=== PATIENT | female | born 1950 | race Caucasian/White ===

== ENCOUNTER 2020-10-07 20:05 | Observation (INO) ==
[2020-10-07] MEDS ORDERED: DILTIAZEM 50 MG/10 ML VIAL IV STA ×2 (20:27→21:41)
[2020-10-07] MEDS ORDERED: ASPIRIN CHEW 81 MG TABLET PO STA (20:27)
[2020-10-07] MEDS ORDERED: ASPIRIN 325 MG TABLET ONE (20:29)
[2020-10-07 20:34] LABS: Basophils # 0.1 10*3/uL (0.0-0.2); Basophils % 0.4 % (0.0-0.8); Eosinophils # 0.1 10*3/uL (0.0-0.87); Eosinophils % 0.4 % (0.00-10.9); Hematocrit 34.6 VOL% (35.7-47.0); Hemoglobin 10.6 GM/DL (12.0-16.0); Immature Granulocytes % 0.5 %; Immature Granulocytes Absolute 0.06 #; Lymphocytes # 2.1 10*3/uL (1.4-4.0); Lymphocytes % 16.8 % (21.3-54.2); Mean Corpuscular HGB Conc 30.6 GM/DL (32-36); Mean Corpuscular Volume 76.7 FL (87-102); Mean Platelet Volume 9.7 FL (9.6-12.0); Monocytes % 9.5 % (1.7-12.7); Neutrophils % 72.4 % (38.7-73.9); Platelet Count 590 T/CUMM (130-400); Red Blood Count 4.51 MC/CUMM (3.8-5.5); White Blood Count 12.7 T/CUMM (4-12)
[2020-10-07] MEDS ORDERED: SODIUM CHLORIDE 0.9% 500 ML IV STA (20:45)
[2020-10-07] MEDS: DILTIAZEM INJ 100 MG in SODIUM CHLORIDE 0.9% 100 ML IV SCH (20:52)
[2020-10-07 21:06] LABS: Alanine Aminotransferase 22 U/L (13-56); Albumin 3.7 G/DL (3.4-5.0); Alkaline Phosphatase 68 U/L (45-117); Aspartate Amino Transferase 17 U/L (0-37); Bilirubin,Total < 0.39 MG/DL (0.2-1.0); Blood Urea Nitrogen 13 MG/DL (7-18); Calcium 12.1 MG/DL (8.5-10.1); Carbon Dioxide 26 MMOL/L (21-32); Estimated Glom Filtration Rate 82 ML/MIN; Glucose 109 MG/DL (74-106); Osmolality,Calculated 262.7 MOS/KG (273-304); Sodium 131 MMOL/L (136-145); Total Protein 7.3 G/DL (6.4-8.2)
[2020-10-07] MEDS ORDERED: ZALEPLON 5 MG CAPSULE PO PRN (22:29)
[2020-10-07] MEDS ORDERED: hydrALAZINE 20 MG/1 ML VIAL IV PRN (22:29)
[2020-10-07] MEDS ORDERED: diphenhydrAMINE CAP 25 MG CAPSULE PO PRN (22:29)
[2020-10-07] MEDS ORDERED: BISACODYL 5 MG TABLET PO PRN (22:29)
[2020-10-07] MEDS ORDERED: NICOTINE 21 MG/24 HR PATCH TRANSDERM PRN (22:29)
[2020-10-07] MEDS ORDERED: ONDANSETRON 4 MG/2 ML VIAL IV PRN (22:29)
[2020-10-07] MEDS ORDERED: GLUCAGON 1 MG VIAL IM PRN (22:29)
[2020-10-07] MEDS ORDERED: MORPHINE 4 MG/1 ML VIAL IV PRN (22:29)
[2020-10-07] MEDS ORDERED: guaiFENesin/DM ER 600-30 MG TABLET PO PRN (22:29)
[2020-10-07] MEDS ORDERED: ACETAMINOPHEN 325 MG TABLET PO PRN (22:29)
[2020-10-07] MEDS ORDERED: DEXTROSE 50% 25 GM/50 ML VIAL IV PRN (22:29)
[2020-10-08] MEDS ORDERED: ISOSORBIDE MONONITRATE 20 MG TABLET PO PRN (01:03)
[2020-10-08] MEDS: SODIUM CHLORIDE 0.9% 1,000 ML IV SCH ×3 (01:37→18:12)
[2020-10-08 01:43] LABS: Bacteria,Urine Occasional /HPF (Few); Bilirubin,Urine Negative (Negative); Blood, Urine Small mg/dL (Negative); Glucose,Urine (UA) Negative (Negative); Hyaline Casts,Urine 3 /LPF (0-3); Ketones,Urine Negative (Negative); Mucus,Urine Occasional /LPF (Occasional); Nitrite,Urine Positive (Negative); Protein,Urine Negative; RBC,Urine 1 /HPF (0-4); Squamous Epithelial Cell,Urine Occasional /HPF (0-10); Urine Appearance CLEAR (Clear); Urine Color Straw (Yellow); Urine Specific Gravity 1.005 (1.001-1.035); Urine Urobilinogen < 2.0 EU/DL (0.2-1.0)
[2020-10-08 01:54] LABS: Barbiturates Screen,Urine Negative (Negative); Benzodiazepines Screen,Urine Negative (Negative); Cannabinoid Screen,Urine Negative (Negative); Opiate Screen,Urine Positive (Negative); Phencyclidine Screen,Urine Negative (Negative)
[2020-10-08] MEDS: DILTIAZEM INJ 100 MG in SODIUM CHLORIDE 0.9% 100 ML IV SCH ×2 (04:09→21:00)
[2020-10-08 04:58] LABS: Basophils % 0.3 % (0.0-0.8); Eosinophils % 0.2 % (0.00-10.9); Hematocrit 31.7 VOL% (35.7-47.0); Hemoglobin 9.7 GM/DL (12.0-16.0); Immature Granulocytes % 0.7 %; Immature Granulocytes Absolute 0.11 #; Lymphocytes # 1.8 10*3/uL (1.4-4.0); Mean Corpuscular HGB Conc 30.6 GM/DL (32-36); Mean Corpuscular Volume 77.1 FL (87-102); Mean Platelet Volume 10.4 FL (9.6-12.0); Monocytes % 8.3 % (1.7-12.7); Neutrophils % 78.5 % (38.7-73.9); Platelet Count 591 T/CUMM (130-400); Red Blood Count 4.11 MC/CUMM (3.8-5.5); Red Cell Distribution Width 19.2 % (9.3-17.3); White Blood Count 15.1 T/CUMM (4-12)
[2020-10-08 05:28] LABS: Calcium 10.8 MG/DL (8.5-10.1); Osmolality,Calculated 266.4 MOS/KG (273-304); Potassium 3.3 MMOL/L (3.5-5.1)
[2020-10-08] MEDS ORDERED: MAGNESIUM SULF RIDER 2 GM/50 ML PREMIX IV ONE (07:11)
[2020-10-08] MEDS ORDERED: MAGNESIUM SULF RIDER 2 GM/50 ML PREMIX IV PRN (07:52)
[2020-10-08] MEDS ORDERED: MAGNESIUM SULF RIDER 4 GM/100 ML PREMIX IV PRN (07:52)
[2020-10-08] MEDS ORDERED: POTASSIUM CHLORIDE 20 MEQ TABLET PO ONE (08:21)
[2020-10-08] MEDS: METOPROLOL SUCCINATE XL 100 MG TABLET PO SCH ×2 (08:44→21:00)
[2020-10-08] MEDS: APIXABAN 5 MG TABLET PO SCH ×2 (08:44→21:01)
[2020-10-08] MEDS: CLOPIDOGREL 75 MG TABLET PO SCH (08:44)
[2020-10-08] MEDS: PANTOPRAZOLE 40 MG TABLET PO SCH (08:44)
[2020-10-08] MEDS: DRONEDARONE 400 MG TABLET PO SCH ×2 (08:44→18:03)
[2020-10-08] MEDS ORDERED: ENOXAPARIN 40 MG/0.4 ML SYRINGE SUBCUT SCH (09:00)
[2020-10-08] MEDS: ASCORBIC ACID 500 MG TABLET PO SCH ×2 (10:35→21:00)
[2020-10-08] MEDS: POTASSIUM CHLORIDE 20 MEQ TABLET PO PRN ×2 (10:35→12:18)
[2020-10-08] MEDS: cefTRIAXone 1,000 MG in SODIUM CHLORIDE 0.9% 100 ML IV SCH (10:35)
[2020-10-08] MEDS: AMITRIPTYLINE 25 MG TABLET PO SCH (18:03)
[2020-10-08] MEDS: ATORVASTATIN 40 MG TABLET PO SCH (21:01)
[2020-10-09] MEDS: SODIUM CHLORIDE 0.9% 1,000 ML IV SCH ×3 (01:40→20:30)
[2020-10-09 06:02] LABS: Basophils % 0.4 % (0.0-0.8); Eosinophils # 0.1 10*3/uL (0.0-0.87); Hematocrit 22.6 VOL% (35.7-47.0); Immature Granulocytes % 0.4 %; Immature Granulocytes Absolute 0.03 #; Lymphocytes % 25.8 % (21.3-54.2); Mean Corpuscular HGB Conc 30.1 GM/DL (32-36); Mean Corpuscular Volume 78.5 FL (87-102); Mean Platelet Volume 10.3 FL (9.6-12.0); Monocytes % 9.2 % (1.7-12.7); Neutrophils % 63.2 % (38.7-73.9); Platelet Count 379 T/CUMM (130-400); Red Blood Count 2.88 MC/CUMM (3.8-5.5); Red Cell Distribution Width 19.2 % (9.3-17.3); White Blood Count 7.7 T/CUMM (4-12)
[2020-10-09 06:12] LABS: Hemoglobin 6.8 GM/DL (12.0-16.0)
[2020-10-09 06:15] LABS: Calcium 9.3 MG/DL (8.5-10.1); Osmolality,Calculated 274.5 MOS/KG (273-304); Potassium 4.1 MMOL/L (3.5-5.1)
[2020-10-09] MEDS: cefTRIAXone 1,000 MG in SODIUM CHLORIDE 0.9% 100 ML IV SCH (08:55)
[2020-10-09] MEDS: METOPROLOL SUCCINATE XL 100 MG TABLET PO SCH ×2 (08:56→20:30)
[2020-10-09] MEDS: CLOPIDOGREL 75 MG TABLET PO SCH (08:56)
[2020-10-09] MEDS: ASCORBIC ACID 500 MG TABLET PO SCH ×2 (08:56→20:29)
[2020-10-09] MEDS: PANTOPRAZOLE 40 MG TABLET PO SCH (08:56)
[2020-10-09] MEDS: DRONEDARONE 400 MG TABLET PO SCH ×2 (08:56→18:10)
[2020-10-09] MEDS: APIXABAN 5 MG TABLET PO SCH (08:56)
[2020-10-09 09:11] LABS: Hematocrit 24.6 VOL% (35.7-47.0); Hemoglobin 7.4 GM/DL (12.0-16.0)
[2020-10-09] MEDS ORDERED: SODIUM CHLORIDE 0.9% 1,000 ML IV PRN ×2 (14:35→15:34)
[2020-10-09 15:04] LABS: % Iron Saturation 6.3 % (18-50)
[2020-10-09 15:09] LABS: Folate 8.64 NG/ML (5.38-24.0)
[2020-10-09] MEDS: ATORVASTATIN 40 MG TABLET PO SCH (20:30)
[2020-10-09] MEDS: DILTIAZEM INJ 100 MG in SODIUM CHLORIDE 0.9% 100 ML IV SCH (20:30)
[2020-10-09] MEDS: AMITRIPTYLINE 25 MG TABLET PO SCH (20:30)
[2020-10-09 21:32] VITALS: BP 112/68
== END 2020-10-09 22:22 | disposition home or self-care (01) ==
LOC: EDUNIT# → EDBD → N.EDINP 20:05 → N.ED 20:05 → N.EDINP 10-08 01:13 → N.TELEN 10-08 01:40
PROVIDERS: ADMIT Internal Medicine; ATTEND Internal Medicine

== ENCOUNTER 2020-10-12 08:20 | Observation (INO) ==
[2020-10-12] MEDS ORDERED: ASPIRIN 325 MG TABLET PO STA (08:39)
[2020-10-12] MEDS ORDERED: NITROGLYCERIN 2% OINT 1 INCH/GM PACK TOP STA (08:39)
[2020-10-12 08:42] LABS: Basophils % 0.3 % (0.0-0.8); Eosinophils % 0.3 % (0.00-10.9); Hematocrit 28.7 VOL% (35.7-47.0); Immature Granulocytes % 0.7 %; Immature Granulocytes Absolute 0.08 #; Lymphocytes # 1.1 10*3/uL (1.4-4.0); Lymphocytes % 9.7 % (21.3-54.2); Mean Corpuscular Volume 81.1 FL (87-102); Mean Platelet Volume 10.1 FL (9.6-12.0); Monocytes % 6.1 % (1.7-12.7); Neutrophils % 82.9 % (38.7-73.9); Platelet Count 382 T/CUMM (130-400); Red Cell Distribution Width 19.7 % (9.3-17.3)
[2020-10-12 08:44] LABS: Hemoglobin 8.9 GM/DL (12.0-16.0); Red Blood Count 3.54 MC/CUMM (3.8-5.5); White Blood Count 11.6 T/CUMM (4-12)
[2020-10-12 08:48] LABS: PT Patient Result 10.9 SECS (10.5-12.0); Partial Thromboplastin Time 27.3 SECS (23.9-33.8)
[2020-10-12 09:02] LABS: Albumin 3.2 G/DL (3.4-5.0); Bilirubin,Total 0.5 MG/DL (0.2-1.0); Calcium 8.3 MG/DL (8.5-10.1); Potassium 4.2 MMOL/L (3.5-5.1); Total Protein 5.8 G/DL (6.4-8.2)
[2020-10-12] MEDS ORDERED: ONDANSETRON 4 MG/2 ML VIAL IV PRN (10:34)
[2020-10-12] MEDS ORDERED: GLUCAGON 1 MG VIAL IM PRN (10:34)
[2020-10-12] MEDS ORDERED: DEXTROSE 50% 25 GM/50 ML VIAL IV PRN (10:34)
[2020-10-12] MEDS ORDERED: FUROSEMIDE 40 MG/4 ML VIAL IV ONE (10:38)
[2020-10-12] MEDS ORDERED: ISOSORBIDE MONONITRATE 20 MG TABLET PO PRN (10:49)
[2020-10-12] MEDS ORDERED: ENOXAPARIN 40 MG/0.4 ML SYRINGE SUBCUT SCH (11:00)
[2020-10-12 12:19] LABS: Bilirubin,Urine Negative (Negative); Blood, Urine Negative (Negative); Glucose,Urine (UA) Negative (Negative); Ketones,Urine Negative (Negative); Nitrite,Urine Negative (Negative); Protein,Urine Negative; RBC,Urine 1 /HPF (0-4); Squamous Epithelial Cell,Urine Occasional /HPF (0-10); Urine Appearance CLEAR (Clear); Urine Color Colorless (Yellow); Urine Specific Gravity 1.004 (1.001-1.035); Urine Urobilinogen < 2.0 EU/DL (0.2-1.0)
[2020-10-12] MEDS: DRONEDARONE 400 MG TABLET PO SCH (17:00)
[2020-10-12] MEDS: ASCORBIC ACID 500 MG TABLET PO SCH (20:34)
[2020-10-12] MEDS: APIXABAN 2.5 MG TABLET PO SCH (20:35)
[2020-10-12] MEDS: METOPROLOL SUCCINATE XL 100 MG TABLET PO SCH (20:35)
[2020-10-12] MEDS ORDERED: AMITRIPTYLINE 25 MG TABLET PO SCH (21:00)
[2020-10-12] MEDS ORDERED: ATORVASTATIN 40 MG TABLET PO SCH (21:00)
[2020-10-13 06:54] LABS: Basophils % 0.5 % (0.0-0.8); Eosinophils # 0.2 10*3/uL (0.0-0.87); Eosinophils % 1.9 % (0.00-10.9); Hematocrit 27.1 VOL% (35.7-47.0); Hemoglobin 8.2 GM/DL (12.0-16.0); Immature Granulocytes % 0.3 %; Immature Granulocytes Absolute 0.02 #; Lymphocytes # 1.8 10*3/uL (1.4-4.0); Lymphocytes % 22.6 % (21.3-54.2); Mean Corpuscular HGB Conc 30.3 GM/DL (32-36); Mean Corpuscular Volume 83.1 FL (87-102); Mean Platelet Volume 10.7 FL (9.6-12.0); Monocytes % 10.2 % (1.7-12.7); Neutrophils % 64.5 % (38.7-73.9); Platelet Count 363 T/CUMM (130-400); Red Blood Count 3.26 MC/CUMM (3.8-5.5); White Blood Count 7.8 T/CUMM (4-12)
[2020-10-13 07:24] LABS: Calcium 8.1 MG/DL (8.5-10.1); Osmolality,Calculated 273.7 MOS/KG (273-304); Potassium 3.9 MMOL/L (3.5-5.1)
[2020-10-13 07:29] LABS: Risk Ratio 1.71; VLDL CHOLESTEROL 8.8 MG/DL
[2020-10-13 07:50] LABS: % Iron Saturation 9.1 % (18-50); Ferritin 14.8 ng/ml (8-252)
[2020-10-13 08:08] VITALS: BP 136/73
[2020-10-13] MEDS: ASCORBIC ACID 500 MG TABLET PO SCH (08:09)
[2020-10-13] MEDS: APIXABAN 2.5 MG TABLET PO SCH (08:09)
[2020-10-13] MEDS: DRONEDARONE 400 MG TABLET PO SCH (08:10)
[2020-10-13] MEDS: METOPROLOL SUCCINATE XL 100 MG TABLET PO SCH (08:10)
[2020-10-13] MEDS ORDERED: DOCUSATE/SENNA 50-8.6 MG TABLET PO ONE (08:42)
[2020-10-13] MEDS ORDERED: ASPIRIN EC 81 MG TABLET PO SCH (09:00)
[2020-10-13] MEDS ORDERED: PANTOPRAZOLE 40 MG TABLET PO SCH (09:00)
[2020-10-13 09:06] LABS: Folate 8.64 NG/ML (5.38-24.0)
== END 2020-10-13 11:52 | disposition home or self-care (01) ==
LOC: EDBD → EDUNIT# → N.EDINP 08:20 → N.ED 08:20 → N.EDINP 15:30 → N.TELES 15:44
PROVIDERS: ADMIT Internal Medicine; ATTEND Internal Medicine